=== PATIENT | male | born 1940 ===

== ENCOUNTER 2017-05-18 18:55 | Inpatient (IN) ==
[2017-05-18] MEDS ORDERED: POTASSIUM CHLORIDE 20 MEQ TABLET PO PRN (22:41)
[2017-05-18] MEDS ORDERED: GLUCAGON 1 MG VIAL IM PRN (22:41)
[2017-05-18] MEDS ORDERED: ONDANSETRON 4 MG/2 ML VIAL IV PRN (22:41)
[2017-05-18] MEDS ORDERED: MAGNESIUM SULF RIDER 2 GM in PREMIX 1 EACH IV PRN (22:41)
[2017-05-18] MEDS ORDERED: MAGNESIUM SULF RIDER 4 GM in PREMIX 1 EACH IV PRN (22:41)
[2017-05-18] MEDS ORDERED: MORPHINE 2 MG/1 ML SYRINGE IV PRN (22:41)
[2017-05-18] MEDS: INSULIN REGULAR 100 UNIT/ML SUBCUT SCH (22:55)
[2017-05-18] MEDS: SODIUM CHLORIDE 0.9% 1,000 ML IV SCH (22:56)
[2017-05-19 05:42] LABS: Basophils % 0.5 % (0.0-0.8); Eosinophils # 0.1 10*3/uL (0.0-0.87); Eosinophils % 1.5 % (0.00-10.9); Hematocrit 31.7 VOL% (42.0-52.0); Hemoglobin 11.8 GM/DL (14.0-18.0); Immature Granulocytes % 1.7 %; Immature Granulocytes Absolute 0.13 #; Lymphocytes # 1.5 10*3/uL (1.4-4.0); Lymphocytes % 18.9 % (21.2-54.2); Mean Corpuscular HGB Conc 37.2 GM/DL (32-36); Mean Corpuscular Hemoglobin 38 PG (27-34); Mean Corpuscular Volume 101.9 FL (87-102); Mean Platelet Volume 11.1 FL (9.6-12.0); Monocytes # 0.8 10*3/uL (0.11-0.8); Monocytes % 10.4 % (1.7-12.7); Neutrophils # 5.2 10*3/uL (1.4-7.4); Platelet Count 209 T/CUMM (130-400); Red Blood Count 3.11 MC/CUMM (3.8-5.5); Red Cell Distribution Width 13.6 % (9.3-17.3); White Blood Count 7.8 T/CUMM (4-12)
[2017-05-19] MEDS: DEXTROSE 50% 25 GM/50 ML VIAL IV PRN ×2 (06:13→08:41)
[2017-05-19 06:29] LABS: Albumin 2.8 G/DL (3.4-5.0); Bilirubin,Total 0.5 MG/DL (0.2-1.0); Calcium 7.9 MG/DL (8.5-10.1); Magnesium 2.5 MG/DL (1.8-2.4); Osmolality,Calculated 297.7 MOS/KG (273-304); Potassium 4.6 MMOL/L (3.5-5.1); Risk Ratio 2.6; Thyroid Stimulating Hormone 1.99 uIU/ml (0.358-3.74); Total Protein 6.3 G/DL (6.4-8.3); VLDL CHOLESTEROL 9.6 MG/DL
[2017-05-19] MEDS: PANTOPRAZOLE 40 MG TABLET PO SCH (08:29)
[2017-05-19] MEDS: INSULIN REGULAR 100 UNIT/ML SUBCUT SCH (08:47)
[2017-05-19] MEDS ORDERED: HEPARIN/NACL 0.9% 2 UNITS/ML 500 ML IV ONE (09:20)
[2017-05-19] MEDS ORDERED: LIDOCAINE 1% 20 ML VIAL ONE (09:20)
[2017-05-19] MEDS ORDERED: ceFAZolin 1,000 MG VIAL ONE (09:20)
[2017-05-19] MEDS ORDERED: MIDAZOLAM 2 MG/2 ML VIAL ONE ×2 (09:29→09:37)
[2017-05-19] MEDS ORDERED: fentaNYL 100 MCG/2 ML VIAL ONE (09:29)
[2017-05-19] MEDS ORDERED: VANCOMYCIN 500 MG VIAL ONE ×2 (09:37→09:40)
[2017-05-19] MEDS ORDERED: TISSUE ADHESIVE 1 EACH APPLICATOR TOP ONE (10:28)
[2017-05-19] MEDS: ASPIRIN EC 81 MG TABLET PO SCH (11:36)
[2017-05-19] MEDS: MULTIVITAMIN (CENTRUM) TABLET PO SCH (11:36)
[2017-05-19] MEDS: LEVOTHYROXINE 112 MCG TABLET PO SCH (11:37)
[2017-05-19] MEDS: MONTELUKAST 10 MG TABLET PO SCH (11:37)
[2017-05-19] MEDS: CALCIUM ACETATE 667 MG CAPSULE PO SCH ×2 (11:37→17:14)
[2017-05-19] MEDS: TAMSULOSIN 0.4 MG CAPSULE PO SCH (11:37)
[2017-05-19] MEDS: CALCITRIOL 0.25 MCG CAPSULE PO SCH (11:37)
[2017-05-19] MEDS: MEGESTROL 400 MG/10 ML UDCUP PO SCH (11:37)
[2017-05-19] MEDS: ALFUZOSIN 10 MG TABLET PO SCH (11:38)
[2017-05-19] MEDS: hydrALAZINE 20 MG/1 ML VIAL IV PRN (11:41)
[2017-05-19] MEDS: INSULIN NPH/REGULAR 70/30 100 UNIT/ML SUBCUT SCH (11:42)
[2017-05-19] MEDS ORDERED: INSULIN NPH/REGULAR 70/30 100 UNIT/ML SUBCUT SCH (19:00)
[2017-05-19] MEDS ORDERED: ATORVASTATIN 40 MG TABLET PO SCH (21:00)
[2017-05-20] MEDS: SODIUM CHLORIDE 0.9% 1,000 ML IV SCH (00:56)
[2017-05-20] MEDS: hydrALAZINE 20 MG/1 ML VIAL IV PRN (03:08)
[2017-05-20 05:37] LABS: Basophils # 0.1 10*3/uL (0.0-0.2); Basophils % 0.7 % (0.0-0.8); Eosinophils # 0.1 10*3/uL (0.0-0.87); Hematocrit 32.4 VOL% (42.0-52.0); Hemoglobin 11.5 GM/DL (14.0-18.0); Immature Granulocytes % 0.8 %; Immature Granulocytes Absolute 0.06 #; Lymphocytes # 1.6 10*3/uL (1.4-4.0); Lymphocytes % 22.2 % (21.2-54.2); Mean Corpuscular HGB Conc 35.5 GM/DL (32-36); Mean Corpuscular Hemoglobin 35 PG (27-34); Mean Corpuscular Volume 99.4 FL (87-102); Mean Platelet Volume 10.6 FL (9.6-12.0); Monocytes # 0.7 10*3/uL (0.11-0.8); Monocytes % 9.6 % (1.7-12.7); Neutrophils # 4.6 10*3/uL (1.4-7.4); Neutrophils % 64.7 % (38.7-73.9); Platelet Count 182 T/CUMM (130-400); Red Blood Count 3.26 MC/CUMM (3.8-5.5); Red Cell Distribution Width 13.4 % (9.3-17.3); White Blood Count 7.1 T/CUMM (4-12)
[2017-05-20 05:54] LABS: Calcium 8.1 MG/DL (8.5-10.1); Magnesium 2.3 MG/DL (1.8-2.4); Osmolality,Calculated 290.5 MOS/KG (273-304); Potassium 4.8 MMOL/L (3.5-5.1)
[2017-05-20 05:55] LABS: Calcium 8.2 MG/DL (8.5-10.1); Osmolality,Calculated 292.4 MOS/KG (273-304); Potassium 4.9 MMOL/L (3.5-5.1)
[2017-05-20] MEDS: CALCIUM ACETATE 667 MG CAPSULE PO SCH ×2 (09:07→16:06)
[2017-05-20] MEDS: ASPIRIN EC 81 MG TABLET PO SCH (09:08)
[2017-05-20] MEDS: MULTIVITAMIN (CENTRUM) TABLET PO SCH (09:08)
[2017-05-20] MEDS: INSULIN NPH/REGULAR 70/30 100 UNIT/ML SUBCUT SCH (09:08)
[2017-05-20] MEDS: TAMSULOSIN 0.4 MG CAPSULE PO SCH (09:08)
[2017-05-20] MEDS: MEGESTROL 400 MG/10 ML UDCUP PO SCH (09:09)
[2017-05-20] MEDS: PANTOPRAZOLE 40 MG TABLET PO SCH (09:09)
[2017-05-20] MEDS: MONTELUKAST 10 MG TABLET PO SCH (09:10)
[2017-05-20] MEDS: CALCITRIOL 0.25 MCG CAPSULE PO SCH (09:10)
[2017-05-20] MEDS: ALFUZOSIN 10 MG TABLET PO SCH (09:10)
[2017-05-20] MEDS: LEVOTHYROXINE 112 MCG TABLET PO SCH (09:10)
[2017-05-20 14:54] VITALS: BP 108/48
== END 2017-05-20 16:10 | disposition home or self-care (01) | DRG 242 ==
LOC: EDUNIT# → EDBD → N.ED 18:55 → N.EDINP 19:50 → N.CC 22:19
PROVIDERS: ADMIT Internal Medicine Interventional Cardiology; ATTEND Internal Medicine Interventional Cardiology

== ENCOUNTER 2017-07-20 22:18 | Observation (INO) ==
[2017-07-20] MEDS ORDERED: INSULIN REGULAR 100 UNIT/ML SUBCUT STA (23:30)
[2017-07-20] MEDS ORDERED: VANCOMYCIN INJ 1,000 MG in SODIUM CHLORIDE 0.9% 250 ML IV STA (23:31)
[2017-07-20] MEDS ORDERED: VANCOMYCIN 1,000 MG VIAL ONE (23:48)
[2017-07-21] MEDS ORDERED: MORPHINE 2 MG/1 ML SYRINGE IV STA (00:05)
[2017-07-21 00:26] LABS: Basophils % 0.5 % (0.0-0.8); Eosinophils # 0.1 10*3/uL (0.0-0.87); Eosinophils % 0.7 % (0.00-10.9); Hematocrit 30.4 VOL% (42.0-52.0); Immature Granulocytes Absolute 0.09 #; Lymphocytes # 1.3 10*3/uL (1.4-4.0); Lymphocytes % 14.7 % (21.2-54.2); Mean Corpuscular HGB Conc 32.9 GM/DL (32-36); Mean Corpuscular Hemoglobin 35 PG (27-34); Mean Corpuscular Volume 105.6 FL (87-102); Mean Platelet Volume 10.5 FL (9.6-12.0); Monocytes # 0.7 10*3/uL (0.11-0.8); Monocytes % 7.8 % (1.7-12.7); Neutrophils # 6.5 10*3/uL (1.4-7.4); Neutrophils % 75.3 % (38.7-73.9); Platelet Count 281 T/CUMM (130-400); Red Blood Count 2.88 MC/CUMM (3.8-5.5); Red Cell Distribution Width 13.4 % (9.3-17.3); White Blood Count 8.6 T/CUMM (4-12)
[2017-07-21] MEDS ORDERED: MORPHINE 2 MG/1 ML SYRINGE ONE (00:28)
[2017-07-21 00:43] LABS: Alanine Aminotransferase 35 U/L (16-61); Albumin 2.6 G/DL (3.4-5.0); Alkaline Phosphatase 267 U/L (45-117); Aspartate Amino Transferase 45 U/L (0-37); Bilirubin,Total < 0.39 MG/DL (0.2-1.0); Blood Urea Nitrogen 44 MG/DL (7-18); Calcium 7.9 MG/DL (8.5-10.1); Glucose 463 MG/DL (74-106); Magnesium 2.2 MG/DL (1.8-2.4); Osmolality,Calculated 303.8 MOS/KG (273-304); Potassium 3.6 MMOL/L (3.5-5.1); Sodium 137 MMOL/L (136-145); Total Protein 6.4 G/DL (6.4-8.3)
[2017-07-21] MEDS ORDERED: DEXTROSE 50% 25 GM/50 ML VIAL IV PRN (03:05)
[2017-07-21] MEDS ORDERED: CALCIUM GLUCONATE 1,000 MG in SODIUM CHLORIDE 0.9% 100 ML IV ONE (03:05)
[2017-07-21] MEDS ORDERED: GLUCAGON 1 MG VIAL IM PRN (03:05)
[2017-07-21] MEDS ORDERED: ONDANSETRON 4 MG/2 ML VIAL IV PRN (03:05)
[2017-07-21] MEDS ORDERED: MORPHINE 2 MG/1 ML SYRINGE IV PRN (03:05)
[2017-07-21] MEDS: INSULIN REGULAR 100 UNIT/ML SUBCUT SCH ×3 (06:48→17:40)
[2017-07-21 08:25] LABS: INR 1.1; PT Patient Result 11.4 SECS; Partial Thromboplastin Time 29.3 SECS (0-40)
[2017-07-21] MEDS ORDERED: PANTOPRAZOLE 40 MG VIAL IV SCH (09:00)
[2017-07-21 17:35] VITALS: BP 104/60
== END 2017-07-21 18:30 | disposition home or self-care (01) ==
LOC: N.ED 22:18 → INTOOBSV 23:43 → N.EDINP 23:43 → N.5E 07-21 00:38
PROVIDERS: ADMIT Internal Medicine; ATTEND Internal Medicine

== ENCOUNTER 2017-10-09 18:48 | Inpatient (IN) ==
[2017-10-09] MEDS ORDERED: MORPHINE 2 MG/1 ML SYRINGE IV PRN (21:50)
[2017-10-09] MEDS ORDERED: GLUCAGON 1 MG VIAL IM PRN (21:50)
[2017-10-09] MEDS ORDERED: DEXTROSE 50% 25 GM/50 ML VIAL IV PRN (21:50)
[2017-10-09] MEDS ORDERED: ALBUTEROL 2.5 MG/3 ML NEB RESP TX PRN (21:50)
[2017-10-09] MEDS ORDERED: ALBUMIN 25% 25 GM in PREMIX 1 EACH IV ONE (21:57)
[2017-10-09] MEDS ORDERED: SODIUM CHLORIDE 0.9% 1,000 ML IV SCH (22:00)
[2017-10-09 22:01] LABS: Basophils % 0.2 % (0.0-0.8); Eosinophils % 0.1 % (0.00-10.9); Hematocrit 31.9 VOL% (42.0-52.0); Hemoglobin 10.5 GM/DL (14.0-18.0); Immature Granulocytes % 0.7 %; Immature Granulocytes Absolute 0.09 #; Lymphocytes # 0.6 10*3/uL (1.4-4.0); Lymphocytes % 4.6 % (21.2-54.2); Mean Corpuscular HGB Conc 32.9 GM/DL (32-36); Mean Corpuscular Hemoglobin 33 PG (27-34); Mean Platelet Volume 10.8 FL (9.6-12.0); Monocytes % 7.5 % (1.7-12.7); Neutrophils # 11.4 10*3/uL (1.4-7.4); Neutrophils % 86.9 % (38.7-73.9); Platelet Count 214 T/CUMM (130-400); Red Blood Count 3.19 MC/CUMM (3.8-5.5); Red Cell Distribution Width 14.6 % (9.3-17.3); White Blood Count 13.1 T/CUMM (4-12)
[2017-10-09 22:18] LABS: Bilirubin,Total 0.4 MG/DL (0.2-1.0); Calcium 8.2 MG/DL (8.5-10.1); Osmolality,Calculated 290.9 MOS/KG (273-304); Potassium 4.2 MMOL/L (3.5-5.1); Total Protein 5.7 G/DL (6.4-8.3)
[2017-10-09 22:24] LABS: Lactic Acid 2.5 MMOL/L (0.4-2.0)
[2017-10-09 22:51] LABS: Amorphous Crystals,Urine Few /HPF (Few); Apearance,Urine Slightly Hazy (Clear); Bilirubin,Urine Negative (Negative); Blood, Urine Moderate mg/dL (Negative); Glucose,Urine (UA) >=500 mg/dL (Negative); Hyaline Casts,Urine 1 /LPF (0-3); Ketones,Urine 5 mg/dL (Negative); Mucus,Urine Occasional /LPF (Occasional); Nitrite,Urine Negative (Negative); Protein,Urine 100 MG/DL; Urine Color Yellow (Yellow); Urine Specific Gravity 1.016 (1.001-1.035); Urine Urobilinogen < 2.0 EU/DL (0.2-1.0)
[2017-10-09] MEDS ORDERED: INSULIN REGULAR 100 UNIT/ML ONE (22:52)
[2017-10-09 22:57] LABS: Barbiturates Screen,Urine Negative (Negative); Benzodiazepines Screen,Urine Negative (Negative); Cannabinoid Screen,Urine Negative (Negative); Opiate Screen,Urine Positive (Negative); Phencyclidine Screen,Urine Negative (Negative)
[2017-10-09] MEDS: INSULIN REGULAR 100 UNIT/ML SUBCUT SCH (22:57)
[2017-10-09] MEDS: SODIUM CHLORIDE 0.9% 1,000 ML IV SCH (23:10)
[2017-10-10] MEDS: AZITHROMYCIN INJ 500 MG in SODIUM CHLORIDE 0.9% 250 ML IV SCH ×2 (00:01→23:20)
[2017-10-10] MEDS: cefTRIAXone 1,000 MG in SYRINGE 1 EACH IV SCH ×2 (00:01→23:20)
[2017-10-10] MEDS: INSULIN REGULAR 100 UNIT/ML SUBCUT SCH ×6 (00:19→23:36)
[2017-10-10 02:28] LABS: Lactic Acid 2.2 MMOL/L (0.4-2.0)
[2017-10-10 03:37] LABS: Lymphocytes 1 % (20-55); Platelet Estimate Normal; Segmented Neutrophils 94 % (50-85); Total Cells Counted 100
[2017-10-10 04:43] LABS: ABG Base Excess 4.5 MMOL/L (-2.5-2.5); ABG HCO3 28.3 MMOL/L (20-26); ABG Oxygen Saturation 90.6 % (95-100); ABG PCO2 40.3 MM HG (35-48); ABG PO2 57.9 MM HG (80-95); ABG TCO2 25.4 MMOL/L (23-27); Allen Test Positive; Pt O2 Delivery Device Room Air
[2017-10-10 07:08] LABS: Lactic Acid 3.6 MMOL/L (0.4-2.0)
[2017-10-10 07:27] LABS: Potassium 3.8 MMOL/L (3.5-5.1)
[2017-10-10] MEDS: PANTOPRAZOLE 40 MG TABLET PO SCH (08:18)
[2017-10-10] MEDS: DOCUSATE SODIUM 100 MG CAPSULE PO SCH ×2 (08:18→20:22)
[2017-10-10] MEDS: ENOXAPARIN 30 MG/0.3 ML SYRINGE SUBCUT SCH (08:18)
[2017-10-10] MEDS ORDERED: SODIUM CHLORIDE 0.9% 500 ML IV ONE (09:37)
[2017-10-10] MEDS: LEVOTHYROXINE 112 MCG TABLET PO SCH (13:03)
[2017-10-10] MEDS: CALCITRIOL 0.25 MCG CAPSULE PO SCH (13:03)
[2017-10-10] MEDS: ALFUZOSIN 10 MG TABLET PO SCH (13:03)
[2017-10-10] MEDS: ASPIRIN EC 81 MG TABLET PO SCH (13:03)
[2017-10-10] MEDS: MULTIVITAMIN (CENTRUM) TABLET PO SCH (13:03)
[2017-10-10] MEDS: LACTULOSE 20 GM/30 ML UDCUP PO SCH ×2 (13:03→20:22)
[2017-10-10] MEDS: MEGESTROL 400 MG/10 ML UDCUP PO SCH (13:03)
[2017-10-10] MEDS: CALCIUM ACETATE 667 MG CAPSULE PO SCH (17:54)
[2017-10-10] MEDS: SODIUM CHLORIDE 0.9% 1,000 ML IV SCH (20:24)
[2017-10-11 06:17] LABS: Albumin 1.9 G/DL (3.4-5.0); Bilirubin,Total 0.6 MG/DL (0.2-1.0); Calcium 7.8 MG/DL (8.5-10.1); Osmolality,Calculated 284.5 MOS/KG (273-304); Total Protein 5.2 G/DL (6.4-8.3)
[2017-10-11] MEDS: INSULIN REGULAR 100 UNIT/ML SUBCUT SCH ×3 (06:27→18:33)
[2017-10-11] MEDS: CALCIUM ACETATE 667 MG CAPSULE PO SCH ×3 (08:41→17:21)
[2017-10-11] MEDS: MULTIVITAMIN (CENTRUM) TABLET PO SCH (08:41)
[2017-10-11] MEDS: LACTULOSE 20 GM/30 ML UDCUP PO SCH ×2 (08:42→20:01)
[2017-10-11] MEDS: ENOXAPARIN 30 MG/0.3 ML SYRINGE SUBCUT SCH (08:42)
[2017-10-11] MEDS: MEGESTROL 400 MG/10 ML UDCUP PO SCH (08:42)
[2017-10-11] MEDS: ALFUZOSIN 10 MG TABLET PO SCH (08:42)
[2017-10-11] MEDS: ASPIRIN EC 81 MG TABLET PO SCH (08:42)
[2017-10-11] MEDS: DOCUSATE SODIUM 100 MG CAPSULE PO SCH ×2 (08:42→20:01)
[2017-10-11] MEDS: LEVOTHYROXINE 112 MCG TABLET PO SCH (08:42)
[2017-10-11] MEDS: PANTOPRAZOLE 40 MG TABLET PO SCH (08:42)
[2017-10-11] MEDS: CALCITRIOL 0.25 MCG CAPSULE PO SCH (08:42)
[2017-10-11] MEDS: SODIUM CHLORIDE 0.9% 1,000 ML IV SCH (18:32)
[2017-10-11] MEDS: cefTRIAXone 1,000 MG in SYRINGE 1 EACH IV SCH (23:24)
[2017-10-11] MEDS: AZITHROMYCIN INJ 500 MG in SODIUM CHLORIDE 0.9% 250 ML IV SCH (23:29)
[2017-10-12] MEDS: INSULIN REGULAR 100 UNIT/ML SUBCUT SCH ×4 (00:20→18:15)
[2017-10-12 06:21] LABS: Basophils % 0.2 % (0.0-0.8); Eosinophils % 0.2 % (0.00-10.9); Hematocrit 34.2 VOL% (42.0-52.0); Hemoglobin 11.1 GM/DL (14.0-18.0); Immature Granulocytes % 0.9 %; Immature Granulocytes Absolute 0.15 #; Lymphocytes # 0.5 10*3/uL (1.4-4.0); Mean Corpuscular HGB Conc 32.5 GM/DL (32-36); Mean Corpuscular Hemoglobin 32 PG (27-34); Mean Corpuscular Volume 98.8 FL (87-102); Mean Platelet Volume 10.8 FL (9.6-12.0); Monocytes # 1.1 10*3/uL (0.11-0.8); Monocytes % 6.5 % (1.7-12.7); Neutrophils % 89.2 % (38.7-73.9); Platelet Count 216 T/CUMM (130-400); Red Blood Count 3.46 MC/CUMM (3.8-5.5); White Blood Count 16.8 T/CUMM (4-12)
[2017-10-12 06:48] LABS: Burr Cells Slight; Giant Platelets Few; Hypochromasia Slight; Ovalocytes Slight; Platelet Estimate Adequate
[2017-10-12 06:53] LABS: Bilirubin,Total 1.2 MG/DL (0.2-1.0); Calcium 8.1 MG/DL (8.5-10.1); Osmolality,Calculated 283.8 MOS/KG (273-304); Potassium 3.8 MMOL/L (3.5-5.1); Total Protein 5.8 G/DL (6.4-8.3)
[2017-10-12 07:08] LABS: Risk Ratio 2.66; VLDL CHOLESTEROL 13.6 MG/DL
[2017-10-12] MEDS: ENOXAPARIN 30 MG/0.3 ML SYRINGE SUBCUT SCH (09:35)
[2017-10-12] MEDS: CALCIUM ACETATE 667 MG CAPSULE PO SCH ×3 (09:35→17:17)
[2017-10-12] MEDS: ASPIRIN EC 81 MG TABLET PO SCH (09:36)
[2017-10-12] MEDS: ALFUZOSIN 10 MG TABLET PO SCH (09:36)
[2017-10-12] MEDS: LACTULOSE 20 GM/30 ML UDCUP PO SCH ×2 (09:36→21:04)
[2017-10-12] MEDS: MULTIVITAMIN (CENTRUM) TABLET PO SCH (09:36)
[2017-10-12] MEDS: DOCUSATE SODIUM 100 MG CAPSULE PO SCH ×2 (09:36→21:04)
[2017-10-12] MEDS: LEVOTHYROXINE 112 MCG TABLET PO SCH (09:36)
[2017-10-12] MEDS: CALCITRIOL 0.25 MCG CAPSULE PO SCH (09:36)
[2017-10-12] MEDS: MEGESTROL 400 MG/10 ML UDCUP PO SCH (09:36)
[2017-10-12] MEDS: PANTOPRAZOLE 40 MG TABLET PO SCH (09:36)
[2017-10-12] MEDS: PIPERACILLIN/TAZOBACTAM 3,375 MG in SODIUM CHLORIDE 0.9% 100 ML IV SCH ×2 (11:11→17:19)
[2017-10-12] MEDS: FUROSEMIDE 40 MG/4 ML VIAL IV SCH (17:16)
[2017-10-12] MEDS: INSULIN GLARGINE 100 UNIT/ML SUBCUT SCH (21:04)
[2017-10-12] MEDS: cefTRIAXone 1,000 MG in SYRINGE 1 EACH IV SCH (22:23)
[2017-10-12] MEDS: AZITHROMYCIN INJ 500 MG in SODIUM CHLORIDE 0.9% 250 ML IV SCH (23:04)
[2017-10-13] MEDS: INSULIN REGULAR 100 UNIT/ML SUBCUT SCH ×4 (02:03→17:23)
[2017-10-13] MEDS: PIPERACILLIN/TAZOBACTAM 3,375 MG in SODIUM CHLORIDE 0.9% 100 ML IV SCH ×3 (02:03→16:38)
[2017-10-13 06:50] LABS: Basophils % 0.2 % (0.0-0.8); Eosinophils # 0.1 10*3/uL (0.0-0.87); Eosinophils % 0.6 % (0.00-10.9); Hematocrit 32.4 VOL% (42.0-52.0); Hemoglobin 10.7 GM/DL (14.0-18.0); Immature Granulocytes % 0.6 %; Lymphocytes # 0.9 10*3/uL (1.4-4.0); Lymphocytes % 5.3 % (21.2-54.2); Mean Corpuscular Hemoglobin 33 PG (27-34); Mean Corpuscular Volume 99.4 FL (87-102); Mean Platelet Volume 10.6 FL (9.6-12.0); Monocytes # 1.4 10*3/uL (0.11-0.8); Monocytes % 7.8 % (1.7-12.7); Neutrophils # 15.2 10*3/uL (1.4-7.4); Neutrophils % 85.5 % (38.7-73.9); Platelet Count 236 T/CUMM (130-400); Red Blood Count 3.26 MC/CUMM (3.8-5.5); Red Cell Distribution Width 15.3 % (9.3-17.3); White Blood Count 17.8 T/CUMM (4-12)
[2017-10-13 07:24] LABS: Calcium 8.8 MG/DL (8.5-10.1); Osmolality,Calculated 284.1 MOS/KG (273-304); Potassium 3.5 MMOL/L (3.5-5.1)
[2017-10-13] MEDS: FUROSEMIDE 40 MG/4 ML VIAL IV SCH ×2 (08:35→16:37)
[2017-10-13] MEDS: ENOXAPARIN 30 MG/0.3 ML SYRINGE SUBCUT SCH (08:35)
[2017-10-13] MEDS: LEVOTHYROXINE 112 MCG TABLET PO SCH (08:36)
[2017-10-13] MEDS: CALCITRIOL 0.25 MCG CAPSULE PO SCH (08:36)
[2017-10-13] MEDS: amLODIPine 5 MG TABLET PO SCH (08:36)
[2017-10-13] MEDS: MEGESTROL 400 MG/10 ML UDCUP PO SCH (08:36)
[2017-10-13] MEDS: DOCUSATE SODIUM 100 MG CAPSULE PO SCH ×2 (08:36→21:37)
[2017-10-13] MEDS: MULTIVITAMIN (CENTRUM) TABLET PO SCH (08:36)
[2017-10-13] MEDS: ASPIRIN EC 81 MG TABLET PO SCH (08:36)
[2017-10-13] MEDS: CALCIUM ACETATE 667 MG CAPSULE PO SCH ×3 (08:36→16:38)
[2017-10-13] MEDS: PANTOPRAZOLE 40 MG TABLET PO SCH (08:36)
[2017-10-13] MEDS: LACTULOSE 20 GM/30 ML UDCUP PO SCH ×2 (08:36→21:37)
[2017-10-13] MEDS: ALFUZOSIN 10 MG TABLET PO SCH (08:36)
[2017-10-13] MEDS ORDERED: VANCOMYCIN INJ 750 MG in SODIUM CHLORIDE 0.9% 250 ML IV STA (10:56)
[2017-10-13] MEDS ORDERED: TUBERCULIN SKIN TEST 0.1 ML SYRINGE INTRADERM ONE (14:46)
[2017-10-13] MEDS: INSULIN GLARGINE 100 UNIT/ML SUBCUT SCH (21:37)
[2017-10-14] MEDS: INSULIN REGULAR 100 UNIT/ML SUBCUT SCH ×4 (00:38→18:46)
[2017-10-14] MEDS: PIPERACILLIN/TAZOBACTAM 3,375 MG in SODIUM CHLORIDE 0.9% 100 ML IV SCH ×2 (01:59→09:40)
[2017-10-14] MEDS ORDERED: ZALEPLON 5 MG CAPSULE PO ONE (02:40)
[2017-10-14 06:40] LABS: Basophils % 0.2 % (0.0-0.8); Eosinophils # 0.2 10*3/uL (0.0-0.87); Eosinophils % 1.2 % (0.00-10.9); Hematocrit 31.5 VOL% (42.0-52.0); Hemoglobin 10.5 GM/DL (14.0-18.0); Immature Granulocytes % 0.7 %; Immature Granulocytes Absolute 0.15 #; Lymphocytes # 1.1 10*3/uL (1.4-4.0); Lymphocytes % 5.2 % (21.2-54.2); Mean Corpuscular HGB Conc 33.3 GM/DL (32-36); Mean Corpuscular Hemoglobin 33 PG (27-34); Mean Corpuscular Volume 98.4 FL (87-102); Mean Platelet Volume 10.4 FL (9.6-12.0); Monocytes # 1.6 10*3/uL (0.11-0.8); Monocytes % 7.9 % (1.7-12.7); Neutrophils # 17.1 10*3/uL (1.4-7.4); Neutrophils % 84.8 % (38.7-73.9); Platelet Count 249 T/CUMM (130-400); Red Cell Distribution Width 15.2 % (9.3-17.3); White Blood Count 20.2 T/CUMM (4-12)
[2017-10-14 07:17] LABS: Calcium 8.5 MG/DL (8.5-10.1); Osmolality,Calculated 281.3 MOS/KG (273-304); Potassium 3.8 MMOL/L (3.5-5.1)
[2017-10-14 08:36] LABS: Eosinophils 2 % (0-10); Giant Platelets Few; Hypochromasia 1+; Lymphocytes 2 % (20-55); Microcytosis Slight; Platelet Estimate Adequate; Segmented Neutrophils 92 % (50-85); Total Cells Counted 100
[2017-10-14] MEDS: FUROSEMIDE 40 MG/4 ML VIAL IV SCH ×2 (09:37→16:58)
[2017-10-14] MEDS: ENOXAPARIN 30 MG/0.3 ML SYRINGE SUBCUT SCH (09:38)
[2017-10-14] MEDS: DOCUSATE SODIUM 100 MG CAPSULE PO SCH ×2 (09:38→21:21)
[2017-10-14] MEDS: CALCIUM ACETATE 667 MG CAPSULE PO SCH ×3 (09:38→16:58)
[2017-10-14] MEDS: MULTIVITAMIN (CENTRUM) TABLET PO SCH (09:39)
[2017-10-14] MEDS: ASPIRIN EC 81 MG TABLET PO SCH (09:39)
[2017-10-14] MEDS: amLODIPine 5 MG TABLET PO SCH (09:39)
[2017-10-14] MEDS: ALFUZOSIN 10 MG TABLET PO SCH (09:39)
[2017-10-14] MEDS: MEGESTROL 400 MG/10 ML UDCUP PO SCH (09:39)
[2017-10-14] MEDS: PANTOPRAZOLE 40 MG TABLET PO SCH (09:40)
[2017-10-14] MEDS: LEVOTHYROXINE 112 MCG TABLET PO SCH (09:40)
[2017-10-14] MEDS: CALCITRIOL 0.25 MCG CAPSULE PO SCH (09:41)
[2017-10-14] MEDS: LACTULOSE 20 GM/30 ML UDCUP PO SCH ×2 (09:41→21:22)
[2017-10-14] MEDS: ACETAMINOPHEN 325 MG TABLET PO PRN (12:17)
[2017-10-14] MEDS: SULFAMETHOX/TRIMETHOPRIM 400-80 MG TABLET PO SCH (21:21)
[2017-10-14] MEDS: LINEZOLID 600 MG TABLET PO SCH (21:21)
[2017-10-14] MEDS: INSULIN GLARGINE 100 UNIT/ML SUBCUT SCH (21:24)
[2017-10-15] MEDS: INSULIN REGULAR 100 UNIT/ML SUBCUT SCH ×4 (00:10→17:22)
[2017-10-15] MEDS: CALCIUM ACETATE 667 MG CAPSULE PO SCH ×3 (10:58→16:01)
[2017-10-15] MEDS: FUROSEMIDE 40 MG/4 ML VIAL IV SCH ×2 (10:58→15:54)
[2017-10-15] MEDS: amLODIPine 5 MG TABLET PO SCH (11:01)
[2017-10-15] MEDS: ACETAMINOPHEN 325 MG TABLET PO PRN ×2 (11:21→17:25)
[2017-10-15] MEDS: PANTOPRAZOLE 40 MG TABLET PO SCH (11:22)
[2017-10-15] MEDS: LINEZOLID 600 MG TABLET PO SCH ×2 (11:22→20:23)
[2017-10-15] MEDS: LEVOTHYROXINE 112 MCG TABLET PO SCH (11:22)
[2017-10-15] MEDS: ASPIRIN EC 81 MG TABLET PO SCH (11:22)
[2017-10-15] MEDS: ALFUZOSIN 10 MG TABLET PO SCH (11:22)
[2017-10-15] MEDS: SULFAMETHOX/TRIMETHOPRIM 400-80 MG TABLET PO SCH ×2 (11:22→20:23)
[2017-10-15] MEDS: CALCITRIOL 0.25 MCG CAPSULE PO SCH (11:22)
[2017-10-15] MEDS: LACTULOSE 20 GM/30 ML UDCUP PO SCH ×2 (11:23→20:23)
[2017-10-15] MEDS: MEGESTROL 400 MG/10 ML UDCUP PO SCH (11:23)
[2017-10-15] MEDS: MULTIVITAMIN (CENTRUM) TABLET PO SCH (11:23)
[2017-10-15] MEDS: ENOXAPARIN 30 MG/0.3 ML SYRINGE SUBCUT SCH (11:23)
[2017-10-15] MEDS: DOCUSATE SODIUM 100 MG CAPSULE PO SCH ×2 (11:23→20:23)
[2017-10-15] MEDS: INSULIN GLARGINE 100 UNIT/ML SUBCUT SCH (20:25)
[2017-10-16] MEDS: INSULIN REGULAR 100 UNIT/ML SUBCUT SCH ×5 (00:38→23:55)
[2017-10-16] MEDS: ACETAMINOPHEN 325 MG TABLET PO PRN (06:24)
[2017-10-16 07:17] LABS: Basophils % 0.2 % (0.0-0.8); Eosinophils # 0.3 10*3/uL (0.0-0.87); Eosinophils % 1.6 % (0.00-10.9); Hematocrit 31.7 VOL% (42.0-52.0); Hemoglobin 10.3 GM/DL (14.0-18.0); Immature Granulocytes % 0.7 %; Immature Granulocytes Absolute 0.13 #; Lymphocytes # 1.2 10*3/uL (1.4-4.0); Lymphocytes % 6.4 % (21.2-54.2); Mean Corpuscular HGB Conc 32.5 GM/DL (32-36); Mean Corpuscular Hemoglobin 32 PG (27-34); Mean Corpuscular Volume 99.7 FL (87-102); Mean Platelet Volume 10.5 FL (9.6-12.0); Monocytes # 1.3 10*3/uL (0.11-0.8); Monocytes % 6.8 % (1.7-12.7); Neutrophils % 84.3 % (38.7-73.9); Platelet Count 289 T/CUMM (130-400); Red Blood Count 3.18 MC/CUMM (3.8-5.5); Red Cell Distribution Width 15.4 % (9.3-17.3)
[2017-10-16 07:44] LABS: Calcium 8.5 MG/DL (8.5-10.1); Osmolality,Calculated 281.5 MOS/KG (273-304); Potassium 3.4 MMOL/L (3.5-5.1)
[2017-10-16] MEDS: CALCIUM ACETATE 667 MG CAPSULE PO SCH ×3 (09:58→17:35)
[2017-10-16] MEDS: FUROSEMIDE 40 MG/4 ML VIAL IV SCH (09:58)
[2017-10-16] MEDS: LACTULOSE 20 GM/30 ML UDCUP PO SCH ×2 (09:59→20:54)
[2017-10-16] MEDS: ENOXAPARIN 30 MG/0.3 ML SYRINGE SUBCUT SCH (09:59)
[2017-10-16] MEDS: MEGESTROL 400 MG/10 ML UDCUP PO SCH (09:59)
[2017-10-16] MEDS: CALCITRIOL 0.25 MCG CAPSULE PO SCH (10:00)
[2017-10-16] MEDS: DOCUSATE SODIUM 100 MG CAPSULE PO SCH ×2 (10:01→20:54)
[2017-10-16] MEDS: LINEZOLID 600 MG TABLET PO SCH ×2 (10:01→20:54)
[2017-10-16] MEDS: SULFAMETHOX/TRIMETHOPRIM 400-80 MG TABLET PO SCH ×2 (10:01→20:53)
[2017-10-16] MEDS: ASPIRIN EC 81 MG TABLET PO SCH (10:02)
[2017-10-16] MEDS: MULTIVITAMIN (CENTRUM) TABLET PO SCH (10:02)
[2017-10-16] MEDS: amLODIPine 5 MG TABLET PO SCH (10:02)
[2017-10-16] MEDS: ALFUZOSIN 10 MG TABLET PO SCH (10:02)
[2017-10-16] MEDS: PANTOPRAZOLE 40 MG TABLET PO SCH (10:02)
[2017-10-16] MEDS: LEVOTHYROXINE 112 MCG TABLET PO SCH (10:02)
[2017-10-16] MEDS ORDERED: POTASSIUM CHLORIDE 20 MEQ TABLET PO ONE (13:14)
[2017-10-16] MEDS: INSULIN GLARGINE 100 UNIT/ML SUBCUT SCH (20:55)
[2017-10-17] MEDS: INSULIN REGULAR 100 UNIT/ML SUBCUT SCH ×4 (06:36→23:08)
[2017-10-17] MEDS: ENOXAPARIN 30 MG/0.3 ML SYRINGE SUBCUT SCH (09:28)
[2017-10-17] MEDS: CALCIUM ACETATE 667 MG CAPSULE PO SCH ×3 (09:28→17:25)
[2017-10-17] MEDS: MULTIVITAMIN (CENTRUM) TABLET PO SCH (09:28)
[2017-10-17] MEDS: PANTOPRAZOLE 40 MG TABLET PO SCH (09:28)
[2017-10-17] MEDS: MEGESTROL 400 MG/10 ML UDCUP PO SCH (09:28)
[2017-10-17] MEDS: DOCUSATE SODIUM 100 MG CAPSULE PO SCH ×2 (09:29→20:07)
[2017-10-17] MEDS: SULFAMETHOX/TRIMETHOPRIM 400-80 MG TABLET PO SCH (09:29)
[2017-10-17] MEDS: LINEZOLID 600 MG TABLET PO SCH (09:29)
[2017-10-17] MEDS: ASPIRIN EC 81 MG TABLET PO SCH (09:29)
[2017-10-17] MEDS: CALCITRIOL 0.25 MCG CAPSULE PO SCH (09:29)
[2017-10-17] MEDS: ALFUZOSIN 10 MG TABLET PO SCH (09:29)
[2017-10-17] MEDS: amLODIPine 5 MG TABLET PO SCH (09:29)
[2017-10-17] MEDS: LACTULOSE 20 GM/30 ML UDCUP PO SCH ×2 (09:29→20:07)
[2017-10-17] MEDS: LEVOTHYROXINE 112 MCG TABLET PO SCH (09:29)
[2017-10-17] MEDS ORDERED: VANCOMYCIN INJ 1,250 MG in SODIUM CHLORIDE 0.9% 250 ML IV ONE (14:00)
[2017-10-17] MEDS ORDERED: GENTAMICIN INJ 200 MG in SODIUM CHLORIDE 0.9% 100 ML IV ONE (14:00)
[2017-10-17] MEDS: INSULIN GLARGINE 100 UNIT/ML SUBCUT SCH (20:07)
[2017-10-18] MEDS: INSULIN REGULAR 100 UNIT/ML SUBCUT SCH ×2 (05:57→12:54)
[2017-10-18] MEDS: ENOXAPARIN 30 MG/0.3 ML SYRINGE SUBCUT SCH (08:27)
[2017-10-18] MEDS: LEVOTHYROXINE 112 MCG TABLET PO SCH (08:27)
[2017-10-18] MEDS: ASPIRIN EC 81 MG TABLET PO SCH (08:27)
[2017-10-18] MEDS: PANTOPRAZOLE 40 MG TABLET PO SCH (08:27)
[2017-10-18] MEDS: MEGESTROL 400 MG/10 ML UDCUP PO SCH (08:27)
[2017-10-18] MEDS: CALCIUM ACETATE 667 MG CAPSULE PO SCH ×2 (08:27→12:54)
[2017-10-18] MEDS: amLODIPine 5 MG TABLET PO SCH (08:27)
[2017-10-18] MEDS: DOCUSATE SODIUM 100 MG CAPSULE PO SCH (08:27)
[2017-10-18] MEDS: ALFUZOSIN 10 MG TABLET PO SCH (08:27)
[2017-10-18] MEDS: MULTIVITAMIN (CENTRUM) TABLET PO SCH (08:27)
[2017-10-18] MEDS: LACTULOSE 20 GM/30 ML UDCUP PO SCH (08:27)
[2017-10-18 09:32] VITALS: BP 112/56
[2017-10-18] MEDS ORDERED: GENTAMICIN INJ 130 MG in SODIUM CHLORIDE 0.9% 100 ML IV PRN (10:10)
[2017-10-18] MEDS ORDERED: VANCOMYCIN INJ 500 MG in SODIUM CHLORIDE 0.9% 100 ML IV PRN (10:10)
[2017-10-18] MEDS: CALCITRIOL 0.25 MCG CAPSULE PO SCH (11:07)
[2017-10-18] MEDS ORDERED: GENTAMICIN INJ 130 MG in SODIUM CHLORIDE 0.9% 100 ML IV ONE (12:00)
[2017-10-18] MEDS ORDERED: VANCOMYCIN INJ 500 MG in SODIUM CHLORIDE 0.9% 100 ML IV ONE (12:00)
== END 2017-10-18 13:05 | disposition swing bed (61) | DRG 299 ==
LOC: N.CC 20:33 → SUATTDRO 21:40 → N.5E 10-11 22:02
PROVIDERS: ADMIT Internal Medicine; ATTEND Internal Medicine